=== PATIENT | female | born 1965 | race African-American/Black ===

== ENCOUNTER 2017-10-28 08:42 | Outpatient (CLI) | payer OTHER | END 2017-10-28 08:43 | disposition home or self-care (01) | LOC: BICMAMMO 08:42 | PROVIDERS: ATTEND Family Medicine | DX: Z12.31 Encounter for screening mammogram for malignant neoplasm of breast (principal); N63.20 Unspecified lump in the left breast, unspecified quadrant | CPT/HCPCS: 77063; 77067 ==

== ENCOUNTER 2017-11-08 08:34 | Outpatient (CLI) | payer OTHER | END 2017-11-08 08:35 | disposition home or self-care (01) | LOC: BICULT 08:34 | PROVIDERS: ATTEND Family Medicine | DX: N63.20 Unspecified lump in the left breast, unspecified quadrant (principal) ==

== ENCOUNTER 2018-10-16 07:38 | Outpatient (CLI) | payer OTHER ==
--- NOTE | 2018-10-16 09:21 | ULT ---
BILATERAL RENAL ULTRASOUND COMPLETE: Date: 10/16/18 HISTORY: Proteinuria. FINDINGS: Right kidney measures 12.2 x 4.6 x 4.8 cm. Left kidney measures 11.9 x 6.0 x 7.0 cm. The urinary bladder appears unremarkable. No renal hydronephrosis. No perinephric process. IMPRESSION: Unremarkable bilateral renal ultrasound. POS: [facility]
== END 2018-10-16 07:39 | disposition home or self-care (01) ==
LOC: BICULT 07:38
PROVIDERS: ATTEND Internal Medicine Nephrology
DX: R80.9 Proteinuria, unspecified (principal)
CPT/HCPCS: 76770

== ENCOUNTER 2020-01-08 09:11 | Outpatient (CLI) | payer OTHER ==
--- NOTE | 2020-01-08 09:55 | ULT ---
Pelvic sonogram transabdominal and transvaginal imaging with duplex evaluation HISTORY: Anemia. Hot flashes. FINDINGS: Urinary bladder is decompressed. Uterus is surgically absent. No free fluid. The right ovary measures up to 2.2 cm and the left 2.0 cm. Small follicles. Good color and spectral D oppler flow. No adnexal masses. IMPRESSION : Status post hysterectomy. No abnormalities are demonstrated.
--- NOTE | 2020-01-08 10:23 | MMO ---
Bilateral MAMMO Bilat Diag [id number]. CLINICAL HISTORY: Patient is 54 years old and is seen for diagnostic exam. The patient has no family history of breast cancer. The patient has no personal history of cancer. VIEWS: The views performed were: bilateral craniocaudal with tomosynthesis; bilateral mediolateral oblique with tomosynthesis; and bilateral mediolateral with tomosynthesis. FILMS COMPARED: The present examination has been compared to prior imaging studies performed at [facility] on 11/29/2013, 07/01/2015, 07/09/2016 and 10/28/2017. This study has been interpreted with the assistance of computer-aided detection. MAMMOGRAM FINDINGS: There are scattered fibroglandular densities. Finding 1: There are stable benign appearing calcifications seen in both breasts. Finding 2: There are multiple stable masses of varying size with circumscribed margins seen in both breasts. There are no suspicious masses, suspicious calcifications, or new areas of architectural distortion. IMPRESSION: THERE IS NO MAMMOGRAPHIC EVIDENCE OF MALIGNANCY. A ROUTINE FOLLOW-UP MAMMOGRAM IN 1 YEAR IS RECOMMENDED. THE RESULTS OF THIS EXAM WERE SENT TO THE PATIENT. ACR BI-RADS Category 2 - Benign finding MAMMOGRAPHY NOTE: 1. A negative mammogram report should not delay a biopsy if a dominant of clinically suspicious mass is present. 2. Approximately 10% to 15% of breast cancers are not detected by mammography. 3. Adenosis and dense breasts may obscure an underlying neoplasm. Reported by: BOBBY PHILIP MD Electonically Signed: [id number]
== END 2020-01-08 09:12 | disposition home or self-care (01) ==
LOC: BICULT 09:11
PROVIDERS: ATTEND Nurse Practitioner Family
DX: N95.1 Menopausal and female climacteric states (principal); D64.9 Anemia, unspecified; R92.8 Other abnormal and inconclusive findings on diagnostic imaging of breast; Z90.710 Acquired absence of both cervix and uterus
CPT/HCPCS: 76856; 77066; G0279

== ENCOUNTER 2020-05-03 11:47 | Emergency (ER) | payer OTHER ==
[2020-05-03] MEDS ORDERED: Ondansetron ODT 4 MG TAB ONE (12:35)
[2020-05-03] MEDS ORDERED: Ketorolac Tromethamine 30 MG/ML VIAL ONE (12:35)
== END 2020-05-03 13:28 | disposition home or self-care (01) ==
LOC: ERS 11:47
DX: T78.1XXA Other adverse food reactions, not elsewhere classified, initial encounter (principal); R22.0 Localized swelling, mass and lump, head; I10 Essential (primary) hypertension; E11.9 Type 2 diabetes mellitus without complications
CPT/HCPCS: 99284; J1885; Q0162

== ENCOUNTER 2022-03-29 10:24 | Outpatient (CLI) | payer BC ==
[~2022-03-29 10:24] MED LIST: GASTROGRAFIN 30 ML BOT ONE; Iopamidol 370 76% 100 ML VIAL ONE
== END 2022-03-29 10:25 | disposition home or self-care (01) ==
LOC: CT 10:24
PROVIDERS: ATTEND Nurse Practitioner Family
DX: R10.11 Right upper quadrant pain (principal); K29.60 Other gastritis without bleeding; R10.2 Pelvic and perineal pain; D64.9 Anemia, unspecified
CPT/HCPCS: 74178; Q9963; Q9967

== ENCOUNTER 2022-10-26 10:46 | Outpatient (CLI) | payer BC | END 2022-10-26 10:47 | disposition home or self-care (01) | LOC: MRI 10:46 | PROVIDERS: ATTEND Nurse Practitioner Family | DX: F33.1 Major depressive disorder, recurrent, moderate (principal); N95.1 Menopausal and female climacteric states; G62.9 Polyneuropathy, unspecified; R51.9 Headache, unspecified; M06.9 Rheumatoid arthritis, unspecified | CPT/HCPCS: 70551 ==

== ENCOUNTER 2023-06-24 12:01 | Outpatient (CLI) | payer BC, OTHER | END 2023-06-24 12:02 | disposition home or self-care (01) | LOC: BICMAMMO 12:01 | PROVIDERS: ATTEND Nurse Practitioner Family | DX: Z12.31 Encounter for screening mammogram for malignant neoplasm of breast (principal) | CPT/HCPCS: 77063; 77067 ==